=== PATIENT | female | born 1965 | race Caucasian/White ===

== ENCOUNTER 2016-06-25 19:05 | Emergency (ER) | payer OTHER ==
[~2016-06-25] VITALS: Ht 157.5 cm; Wt 55.6 kg
[2016-06-25 19:35] LABS: HEMATOCRIT 35.1 % (36.0-46.0); MCH 31.7 PG (29.0-34.0); MCHC 33.9 G/DL (30.0-36.0); MCV 93.6 FL (83-99); MEAN PLAT.VOLUME 9.3 uM^3 (9.5-12.4); PLATELET COUNT 415 K/uL (156-360); RBC DIS.WIDTH-CV 13.4 % (11.8-14.6); RBC DIS.WIDTH-SD 43.5 % (39-53); RED BLOOD COUNT 3.75 M/uL (3.80-5.20)
[2016-06-25 19:47] LABS: CHLORIDE 105 mEq/L (99-109); POTASSIUM 3.9 mEq/L (3.7-5.4); SODIUM 140 mEq/L (136-147)
[2016-06-25 19:49] LABS: GLUCOSE 93 mg/dL (70-99)
[2016-06-25 19:50] LABS: ANION GAP 9 MEQ/L (2-14)
[2016-06-25 19:53] LABS: GFR ESTIMATE (CALCULATED) > 59 mL/min/
[2016-06-25 19:54] LABS: UREA NITROGEN (BUN) 9 mg/dL (9-23)
[2016-06-25 20:02] LABS: QUANTITATIVE HCG < 4.0 MIU/ML
[2016-06-25 20:34] LABS: ADD MIUA? YES; BILIRUBIN NEGATIVE; BLOOD LARGE; COLOR RED ((YELLOW)); GLUCOSE (STRIP) NEGATIVE; KETONES NEGATIVE; LEUKOCYTES SMALL; NITRITE NEGATIVE; PH, URINE 5.5 (5-8); PROTEIN (STRIP) 100; SPECIFIC GRAVITY 1.023 (1.000-1.030)
[2016-06-25 20:35] LABS: BACTERIA NONE SEEN; CASTS NONE SEEN /LPF; CRYSTALS NONE SEEN; EPITHELIAL CELLS NONE SEEN; MUCUS NONE SEEN; RED BLOOD CELLS TNTC /HPF (0-5); UCUL ADDED? NO
[2016-06-25] MEDS ORDERED: CIPRO500 MG PO (22:59)
[2016-06-25 23:22] VITALS: BP 172/97
== END 2016-06-25 23:28 | disposition home or self-care (01) ==
LOC: EME 19:05
DX: N30.91 Cystitis, unspecified with hematuria (principal); F17.200 Nicotine dependence, unspecified, uncomplicated
CPT/HCPCS: 80048; 81003; 84702; 85027; 99281; 99283